=== PATIENT | male | born 1995 | race African-American/Black ===

== ENCOUNTER 2024-11-17 09:34 | Emergency (ER) | payer MEDICAID, OTHER ==
[~2024-11-17] VITALS: Ht 175.3 cm; Wt 63.8 kg
--- NOTE | 2024-11-17 10:10 | ED.PDOC ---
Epistaxis- HPI HPI Comments A 29 YEAR OLD MALE PRESENTS TO THE ED FOR CHIEF COMPLAINT OF NOSE BLEEDS. PATIENT REPORTS THAT HE HAS BEEN EXPERIENCING NOSE BLEEDS OUT OF HIS RIGHT NOSTRIL EVERY MORNING WITH ASSOCIATED MILD HEADACHES FOR THE PAST 3 DAYS. PATIENT RELAYS THAT IT STARTS NORMALLY WHEN HE IS GETTING READY IN THE MORNING. PATIENT STATES HE RECENTLY MOVED TO THE AREA AND IS UNSURE IF HE HAS ALLERGIES. PATIENT DENIES ANY ACTIVE BLEEDING, DIZZINESS, WEAKNESS, OR ALLERGIES. NO OTHER SYMPTOMS REPORTED AT THIS TIME OF CARE. PT IS ALERT, ORIENTATION X4 WITH NORMAL GAIT. Chief Complaint: Nose Bleed Time Seen by MD: 09:57 Reviewed Notes: Nurses Notes, Medications, Allergies Allergies: Coded Allergies: NO KNOWN ALLERGIES (Unverified , 05/29/18) Home Meds Active Scripts Methylprednisolone (Medrol Dosepak) 4 Mg Winston, 4 MG PO UD, #21 TAB UAD Prov:LUZMARIA BANGURA 11/17/24 Information Source: Patient Mode of Arrival: Ambulatory Severity: Streaking, Bleeding Controlled Timing: Days Duration: Since onset, Intermittent, Days Prehospital treatment: None Location: Right naris Mechanism: Spontaneous onset Circumstances: Unknown Use of: None History of: None Last Tetanus: Unknown Nose: Normal Bleeding Status: No active bleeding Bleeding Amount: Mild Source: Right, Little's area Associated signs and symptoms: None Past Medical History PAST MEDICAL HISTORY: Denies Surgical History: Denies all surgeries Family History Family History: Reviewed,noncontributory to illness Social History Smoker: Non-Smoker Alcohol: Denies ETOH Use Drugs: Denies Drug Use Lives In: Home Constitutional: denies: chills, diaphoresis, fatigue, fever, malaise, sweats, weakness, others EENTM: reports: nose bleeding; denies: blurred vision, double vision, ear bleeding, ear discharge, ear drainage, ear pain, ear ringing, eye pain, eye redness, hearing loss, mouth pain, mouth swelling, nasal discharge, nose congestion, nose pain, photophobia, tearing, throat pain, throat swelling, voice changes, others Respiratory: denies: cough, hemoptysis, orthopnea, SOB at rest, shortness of breath, SOB with excertion, stridor, wheezing, others Cardiovascular: denies: chest pain, dizzy spells, diaphoresis, Dyspnea on exertion, edema, irregular heart beat, left arm pain, lightheadedness, palpitations, PND, syncope, others Gastrointestinal: denies: abdomen distended, abdominal pain, blood streaked bowels, constipated, diarrhea, dysphagia, difficulty swallowing, hematemesis, melena, nausea, poor appetite, poor fluid intake, rectal bleeding, rectal pain, vomiting, others Genitourinary: denies: burning, dysuria, flank pain, frequency, hematuria, incontinence, penile discharge, penile sore, pain, testicle pain, testicle swelling, urgency, others Neurological: denies: dizziness, fainting, headache, left sided numbness, left sided weakness, numbness, paresthesia, pre-existing deficit, right sided numbness, right sided weakness, seizure, speech problems, tingling, tremors, weakness, others Musculoskeletal: denies: back pain, gout, joint pain, joint swelling, muscle pain, muscle stiffness, neck pain, others Integumetry: denies: bruises, change in color, change in hair/nails, dryness, laceration, lesions, lumps, rash, wounds, others Allergic/Immunocompromised: denies: Difficulty Healing, Frequent Infections, Hives, Itching, others Hematologic/Lymphatic: denies: anemia, blood clots, easy bleeding, easy bruising, swollen glands, others Endocrine: denies: excessive hunger, excessive sweating, excessive thirst, excessive urination, flushing, intolerance to cold, intolerance to heat, unexplained weight gain, unexplained weight loss, others Psychiatric: denies: anxiety, bipolar disorder, depression, hopeless, panic disorder, schizophrenia, sleepless, suicidal, others All Other Systems: Reviewed and Negative Physical Exam General Appearance: No Apparent Distress, Normal HEENT: Normal ENT Inspection, PERRL/EOMI, Pharynx Normal, Other (+ANTERIOR NOSE BLEEDING SITE SEEN, NO NOSE BLEEDING AND BLOOD CLOTS AT THIS TIME. ) Neck: Full Range of Motion, Non-Tender, Normal, Normal Inspection Respiratory: Chest Non-Tender, Lungs Clear, No Accessory Muscle Use, No Respiratory Distress, Normal Breath Sounds Cardiovascular: No Edema, No JVD, No Murmur, No Gallop, Normal Peripheral Pulses, Regular Rate/Rhythm Breast Exam: Deferred Gastrointestinal: No Organomegaly, Non Tender, No Pulsatile Mass, Normal Bowel Sounds, Soft Genitalia: Deferred Pelvic: Deferred Rectal: Deferred Extremities: No calf tenderness, Normal capillary refill, Normal inspection, Normal range of motion, Non-tender, No pedal edema Musculoskeletal : Apperance: Normal Neurologic: Alert, executive business coach II-XII nml as Tested, No Motor Deficits, Normal Affect, Normal Mood, No Sensory Deficits Cerebellar Function: Normal Reflexes: Normal Skin: Dry, Normal Color, Warm Peripheral Pulses: 2+ carotid (R), 2+ carotid (L) Lymphatic: No Adenopathy Was a procedure done? Was a procedure done?: No Differential Diagnosis (NSB) Differential Diagnosis: Anterior Nasal Bleed X-Ray, Labs, Meds, VS Vital Signs Date Time Temp Pulse Resp B/P (MAP) Pulse Ox O2 Delivery O2 Flow Rate FiO2 11/17/24 10:00 98.9 89 17 136/98 (111) 98 98.9 11/17/24 09:59 89 16 99 Room Air 11/17/24 09:50 98.8 88 14 139/97 (111) 99 98.8 Lab Test 11/17/24 10:13 Range/Units White Blood Count 4.8 4.4-10.8 10^3/uL Red Blood Count 4.31 L 4.5-5.90 10^6/uL Hemoglobin 13.3 L 13.5-17.5 g/dL Hematocrit 39.4 L 41.0-53.0 % Mean Corpuscular Volume 91.3 80.0-100.0 fL Mean Corpuscular Hemoglobin 31.0 28.0-32.0 pg Mean Corpuscular Hemoglobin Concent 33.9 32.0-36.0 g/dL Red Cell Distribution Width 13.1 11.8-14.3 % Platelet Count 184 140-450 10^3/uL Mean Platelet Volume 8.6 6.9-10.8 fL Neutrophils (%) (Auto) 60.9 37.0-80.0 % Lymphocytes (%) (Auto) 28.4 10.0-50.0 % Monocytes (%) (Auto) 7.8 0.0-12.0 % Eosinophils (%) (Auto) 2.2 0.0-7.0 % Basophils (%) (Auto) 0.7 0.0-2.0 % Neutrophils # (Auto) 2.9 1.6-8.6 10 ^3/uL Lymphocytes # (Auto) 1.4 0.4-5.4 10 ^3/uL Monocytes # (Auto) 0.4 0-1.3 10 ^3/uL Eosinophils # (Auto) 0.1 0-0.8 10 ^3/uL Basophils # (Auto) 0 0-0.2 10 ^3/uL Nucleated Red Blood Cells 0.0 % Prothrombin Time 10.6 9.3-11.8 sec Prothrombin Time INR 1.00 0.9-1.15 Sodium Level 144 136-145 mmol/L Potassium Level 3.8 3.5-5.1 mmol/L Chloride Level 111 H 98-107 mmol/L Carbon Dioxide Level 28 20-31 mmol/L Anion Gap 5 5-15 Blood Urea Nitrogen 8 L 9-23 mg/dL Creatinine 0.88 0.700-1.30 mg/dL Glomerular Filtration Rate Calc 120 >90 mL/min BUN/Creatinine Ratio 9.1 L 10.0-20.0 Serum Glucose 102 74-106 mg/dL Calcium Level 9.5 8.7-10.4 mg/dL X-Ray, Labs, Meds, VS Comment EXTERNAL MEDICAL RECORDS REVIEWED: [NONE] INDEPENDENT HISTORIANS: [NONE] SOCIAL DETERMINANTS OF HEALTH: [NONE] LABS ORDERED: CBC, BMP, PTPTT REVIEWED AND INTERPRETED RESULTS: NONE IMAGING ORDERED: NONE TREATMENTS ORDERED: PROCEDURES PERFORMED: NONE CRITICAL CARE TIME: NONE I HAVE DISCUSSED THE PATIENT WITH THE ATTENDING PHYSICIAN DR. TO AND HE AGREES WITH THE PATIENT'S PLAN OF CARE AND DISPOSITION. BASED ON HISTORY OF PRESENT ILLNESS, AND PHYSICAL EXAM, PATIENT WILL BE DISCHARGED HOME. DISCUSSED PLAN FOR DISCHARGE HOME.RX: MEDROL DOSE PACK. SHARED DECISION MAKING: DISCUSSED WITH PATIENT THAT THEIR WORKUP WAS NORMAL. PATIENT INSTRUCTED TO FOLLOW UP WITH PRIMARY CARE PROVIDER IN 1-2 DAYS FOR RE- EVALUATION OF SYMPTOMS. PATIENT VERBALIZES UNDERSTANDING TO RETURN TO ED FOR NEW OR WORSENING SYMPTOMS OR IF FOLLOW UP WITH PCP CANNOT BE OBTAINED. PATIENT FEELS COMFORTABLE GOING HOME AT THIS TIME. ALL QUESTIONS ADDRESSED AT TIME OF DISCHARGE. Time of 1ST Reevaluation: 11:17 Reevaluation 1ST: Improved Patient Education/Counseling: Diagnosis, Treatment, Need For Follow Up Family Education/Counseling: Diagnosis, Treatment, No Family Present Medical Screening: No EMC Exist At This Time Departure 1 Departure Time of Disposition: 11:16 Impression: Primary Impression: Anterior epistaxis Disposition: 01 HOME / SELF CARE / HOMELESS Condition: Stable Additional Instructions: FOLLOW-UP WITH PCP IN 1 TO 2 DAYS. TAKE MEDICATIONS PRESCRIBED. RETURN TO ED FOR ANY NEW OR WORSENING SYMPTOMS. e-Prescriptions Methylprednisolone (Medrol Dosepak) 4 Mg Winston 4 MG PO UD, #21 TAB UAD Prov: LUZMARIA BANGURA 11/17/24 Discharged With: Self Critical Care Note Critical Care Time?: No Stability Stability form required: No Heart Score Heart Score: Heart Score Response (Comments) Value History N/A 0 EKG N/A 0 Age N/A 0 Risk Factors N/A 0 Troponin N/A 0 Total 0 I personally scribed for LUZMARIA BANGURA ([email or web address]) on 11/17/24 at 10:10. Electronically submitted by Eusebio Robbins ([email or web address]). I personally scribed for LUZMARIA BANGURA ([email or web address]) on 11/17/24 at 10:30. Electronically submitted by Eusebio Robbins ([email or web address]). I personally scribed for LUZMARIA BANGURA ([email or web address]) on 11/17/24 at 10:55. Electronically submitted by Eusebio Robbins ([email or web address]). I personally scribed for LUZMARIA BANGURA ([email or web address]) on 11/17/24 at 10:55. Electronically submitted by Eusebio Robbins ([email or web address]). LUZMARIA BANGURA Nov 17, 2024 10:10
[2024-11-17 10:38] LABS: Basophils # (auto) 0 10 ^3/uL (0-0.2); Basophils % (auto) 0.7 % (0.0-2.0); Eosinophils # (auto) 0.1 10 ^3/uL (0-0.8); Eosinophils % (auto) 2.2 % (0.0-7.0); Hematocrit 39.4 % (41.0-53.0); Hemoglobin 13.3 g/dL (13.5-17.5); Lymphocytes # (auto) 1.4 10 ^3/uL (0.4-5.4); Lymphocytes % (auto) 28.4 % (10.0-50.0); Mean Corpuscular Hgb Conc. 33.9 g/dL (32.0-36.0); Mean Corpuscular Volume 91.3 fL (80.0-100.0); Monocytes # (auto) 0.4 10 ^3/uL (0-1.3); Monocytes % (auto) 7.8 % (0.0-12.0); Neutrophils # (auto) 2.9 10 ^3/uL (1.6-8.6); Neutrophils % (auto) 60.9 % (37.0-80.0); Platelet Count (auto) 184 10^3/uL (140-450); Red Blood Cells 4.31 10^6/uL (4.5-5.90); Red Cell Distribution Width 13.1 % (11.8-14.3); White Blood Cell 4.8 10^3/uL (4.4-10.8)
[2024-11-17 10:51] LABS: Anion Gap 5 (5-15); Carbon Dioxide 28 mmol/L (20-31); Potassium 3.8 mmol/L (3.5-5.1); Sodium 144 mmol/L (136-145)
[2024-11-17 10:52] LABS: Calcium 9.5 mg/dL (8.7-10.4); Chloride 111 mmol/L (98-107)
[2024-11-17 10:53] LABS: Prothrombin Time 10.6 sec (9.3-11.8)
[2024-11-17 10:57] LABS: BUN/Creatinine Ratio 9.1 (10.0-20.0); Glucose 102 mg/dL (74-106)
[2024-11-17 11:07] LABS: Blood Urea Nitrogen 8 mg/dL (9-23)
[2024-11-17] MEDS ORDERED: METH4PAK PO (11:15)
== END 2024-11-17 11:15 | disposition home or self-care (01) ==
LOC: ER 09:41 → EDUNIT# 09:41 → ER 11:15
DX: R04.0 Epistaxis (principal); R51.9 Headache, unspecified; Z79.899 Other long term (current) drug therapy
CPT/HCPCS: 36415; 80048; 85025; 85610